=== PATIENT | female | born 1980 | race Native Hawaiian/Other Pacific Islander ===

== ENCOUNTER 2016-06-17 15:05 | Outpatient (CLI) | payer OTHER ==
[~2016-06-17 15:05] MED LIST: METF500T PO; OXYC5TAB53 PO
[2016-06-17 15:24] LABS: POTASSIUM 4.4 mmol/L (3.6-5.2); SODIUM 139 mmol/L (136-145)
[2016-06-17 15:27] LABS: PLATELET COUNT 281 K/uL (152-353)
== END 2016-06-17 20:03 | disposition home or self-care (01) ==
LOC: LAB 15:05
PROVIDERS: Nurse Practitioner Family
DX: M25.551 Pain in right hip (principal); E16.1 Other hypoglycemia; R53.83 Other fatigue; K21.9 Gastro-esophageal reflux disease without esophagitis; E78.00 Pure hypercholesterolemia, unspecified
CPT/HCPCS: 80053; 80061; 83036; 84436; 84443; 85027